=== PATIENT | male | born 1965 | race Two or more races ===

== ENCOUNTER 2024-03-20 20:22 | Inpatient (IN) | payer OTHER ==
[~2024-03-20] VITALS: Ht 172.7 cm; Wt 72.0 kg
[2024-03-21 00:18] LABS: BASOPHILS % (AUTO) 0.3 % (0.0-2.0); EOSINOPHILS % (AUTO) 1.9 % (1.0-6.0); HEMATOCRIT 34.8 % (41-53); HEMOGLOBIN 11.9 g/dL (13.5-17.5); LYMPHOCYTES # (AUTO) 1.1 K/uL (1.0-4.8); LYMPHOCYTES % (AUTO) 17.3 % (22.0-44.0); MEAN CORPUSCULAR HEMOGLOBIN 29.7 pg (26.0-34.0); MEAN CORPUSCULAR HGB CONC 34.1 G/dL (31.0-37.0); MEAN CORPUSCULAR VOLUME 87 fL (80-100); MONOCYTES # (AUTO) 0.8 K/uL (0.1-1.0); MONOCYTES % (AUTO) 11.7 % (2.0-9.0); NEUTROPHILS # (AUTO) 4.4 K/uL (1.8-7.7); NEUTROPHILS % (AUTO) 68.8 % (40.0-70.0); PLATELET COUNT (AUTO) 237 K/uL (150-450); RED BLOOD CELL COUNT(AUTO) 3.99 MIL/uL (4.50-5.90); WHITE BLOOD COUNT (AUTO) 6.5 K/uL (4.5-11.0)
[2024-03-21 00:38] LABS: LACTIC ACID 1.9 mmol/L (0.4-2.0)
[2024-03-21 00:58] LABS: CALCIUM, TOTAL 8.3 mg/dL (8.8-10.5); CARBON DIOXIDE 30 mmol/L (22-29); CREATININE 0.78 mg/dL (0.60-1.30); GLOMERULAR FILTR. RATE CALC > 60 mL/min (>60); GLUCOSE,RANDOM 77 mg/dL (70-110); UREA NITROGEN, BLOOD 19 mg/dL (7-18)
[2024-03-21 01:11] LABS: ANION GAP 0 mmol/L (8-16); CHLORIDE 102 mmol/L (98-107); POTASSIUM 3.6 mmol/L (3.5-5.1); SODIUM SERUM 132 mmol/L (136-145)
[2024-03-21] MEDS: CeFAZolin 1 GM/DEXTROSE 50 ML IV ONE (02:00)
[2024-03-21 02:10] VITALS: BP 133/77; PULSE 72; RESP 18; TEMP 97.7
[2024-03-21] MEDS ORDERED: SODIUM CHLORIDE 0.9% 500 ML IV ONE (03:35)
[2024-03-21] MEDS: VANCOMYCIN 1.25 GM/WATER(PEG) 250 ML IV ONE (03:40)
[2024-03-21 04:35] VITALS: BP 140/84; PULSE 66; RESP 18; TEMP 97.6
[2024-03-21 08:02] VITALS: BP 134/75; PULSE 71; RESP 20; TEMP 98.7
[2024-03-21] MEDS ORDERED: ALBUTEROL SULFATE 2.5 MG/0.5 ML NEB SOLUTION NEB PRN (11:15)
[2024-03-21] MEDS ORDERED: BISACODYL 10 MG RECTAL RECTAL SUPPOSITORY PR PRN (11:15)
[2024-03-21] MEDS ORDERED: CloNIDine HCL 0.1 MG TABLET PO PRN (11:15)
[2024-03-21] MEDS ORDERED: ONDANSETRON HCL 4 MG/2 ML VIAL IVP PRN (11:15)
[2024-03-21] MEDS ORDERED: MAGNESIUM HYDROXIDE SUSPENSION 30 ML UDCUP PO PRN (11:15)
[2024-03-21] MEDS ORDERED: LOPERAMIDE HCL 2 MG/15 ML SUSPENSION UDCUP PO PRN (11:15)
[2024-03-21] MEDS ORDERED: MAG HYDROX/ALUMINUM HYD/SIMETH ES 30 ML SUSPENSION UDCUP PO PRN (11:15)
[2024-03-21] MEDS ORDERED: BACLOFEN 10 MG TABLET PO PRN (11:15)
[2024-03-21] MEDS ORDERED: IPRATROPIUM BROMIDE 0.5 MG/2.5 ML NEB SOLUTION NEB PRN (11:15)
[2024-03-21] MEDS ORDERED: PROMETHAZINE HCL 25 MG TABLET PO PRN (11:15)
[2024-03-21] MEDS ORDERED: TraZODone HCL 50 MG TABLET PO PRN (11:15)
[2024-03-21] MEDS ORDERED: ACETAMINOPHEN 325 MG TABLET PO PRN (11:15)
[2024-03-21] MEDS ORDERED: DICYCLOMINE HCL 10 MG CAPSULE PO PRN (11:15)
[2024-03-21] MEDS ORDERED: IBUPROFEN 600 MG TABLET PO PRN (11:15)
[2024-03-21] MEDS ORDERED: HydrOXYzine PAMOATE 50 MG CAPSULE PO PRN (11:15)
[2024-03-21 16:01] VITALS: BP 124/73; PULSE 73; RESP 20; TEMP 98.2
[2024-03-21] MEDS: HEPARIN SODIUM,PORCINE 5,000 UNITS/ML VIAL SQ SCH (17:17)
[2024-03-21] MEDS: SODIUM CHLORIDE 0.45% 1,000 ML IV SCH (17:17)
[2024-03-21 19:40] VITALS: BP 135/82; PULSE 69; RESP 20; TEMP 98.5
[2024-03-21] MEDS: VANCOMYCIN 1.25 GM/WATER(PEG) 250 ML IV SCH (20:12)
[2024-03-21] MEDS: LORazepam 1 MG TABLET PO PRN (20:19)
[2024-03-21] MEDS: ACETAMINOPHEN 325 MG TABLET PO PRN (20:20)
[2024-03-21] MEDS ORDERED: SODIUM CHLORIDE 0.9% 100 ML ONE (21:05)
[2024-03-21] MEDS ORDERED: IOHEXOL 350 MG/ML 100 ML VIAL ONE (21:05)
[2024-03-22 04:25] VITALS: BP 135/88; PULSE 72; RESP 20; TEMP 98.5
[2024-03-22 07:20] LABS: ANION GAP 6 mmol/L (8-16); BASOPHILS % (AUTO) 0.2 % (0.0-2.0); CALCIUM, TOTAL 8.6 mg/dL (8.8-10.5); CARBON DIOXIDE 27 mmol/L (22-29); CHLORIDE 103 mmol/L (98-107); CREATININE 0.85 mg/dL (0.60-1.30); EOSINOPHILS % (AUTO) 0.4 % (1.0-6.0); GLOMERULAR FILTR. RATE CALC > 60 mL/min (>60); GLUCOSE,RANDOM 97 mg/dL (70-110); HEMATOCRIT 37.9 % (41-53); LYMPHOCYTES # (AUTO) 0.7 K/uL (1.0-4.8); LYMPHOCYTES % (AUTO) 9.6 % (22.0-44.0); MEAN CORPUSCULAR HEMOGLOBIN 29.8 pg (26.0-34.0); MEAN CORPUSCULAR HGB CONC 34.3 G/dL (31.0-37.0); MEAN CORPUSCULAR VOLUME 87 fL (80-100); MONOCYTES # (AUTO) 0.5 K/uL (0.1-1.0); NEUTROPHILS # (AUTO) 6.1 K/uL (1.8-7.7); NEUTROPHILS % (AUTO) 82.8 % (40.0-70.0); PLATELET COUNT (AUTO) 243 K/uL (150-450); POTASSIUM 3.8 mmol/L (3.5-5.1); RED BLOOD CELL COUNT(AUTO) 4.36 MIL/uL (4.50-5.90); RED CELL DISTRIBUTION WIDTH 13.2 % (11.5-14.5); SODIUM SERUM 136 mmol/L (136-145); UREA NITROGEN, BLOOD 17 mg/dL (7-18); WHITE BLOOD COUNT (AUTO) 7.3 K/uL (4.5-11.0)
[2024-03-22] MEDS: PANTOPRAZOLE SODIUM 40 MG DR TABLET PO SCH (07:41)
[2024-03-22 09:27] VITALS: BP 137/86; PULSE 73; RESP 20; TEMP 97.9
[2024-03-22 20:21] VITALS: BP 128/71; PULSE 73; RESP 20; TEMP 98.4
[2024-03-22] MEDS: ZOLPIDEM TARTRATE 5 MG TABLET PO PRN (20:57)
[2024-03-23 04:55] VITALS: BP 135/83; PULSE 68; RESP 20; TEMP 98.7
[2024-03-23 07:07] LABS: ANION GAP 3 mmol/L (8-16); CALCIUM, TOTAL 8.7 mg/dL (8.8-10.5); CARBON DIOXIDE 31 mmol/L (22-29); CHLORIDE 104 mmol/L (98-107); CREATININE 0.83 mg/dL (0.60-1.30); GLOMERULAR FILTR. RATE CALC > 60 mL/min (>60); GLUCOSE,RANDOM 96 mg/dL (70-110); POTASSIUM 4.1 mmol/L (3.5-5.1); SODIUM SERUM 138 mmol/L (136-145); UREA NITROGEN, BLOOD 13 mg/dL (7-18); VANCOMYCIN,RANDOM 11.6 mcg/mL (25.0-50.0)
[2024-03-23 08:20] VITALS: BP 130/79; PULSE 68; RESP 18; TEMP 97.9
[2024-03-23 11:11] VITALS: BP 130/79; PULSE 68; RESP 18; TEMP 97.9; O2SAT 99
[2024-03-23] MEDS: VANCOMYCIN 1GM/WATER(PEG/NADA) 200 ML IV SCH (17:10)
[2024-03-23 20:04] VITALS: BP 129/76; PULSE 69; RESP 18; TEMP 98.5
[2024-03-24 04:49] VITALS: BP 140/88; PULSE 72; RESP 18; TEMP 98.3
[2024-03-24 08:16] VITALS: BP 129/72; PULSE 67; RESP 18; TEMP 97.8
[2024-03-24 12:40] VITALS: BP 129/72; PULSE 67; RESP 18; TEMP 97.8; O2SAT 99
[2024-03-24] MEDS ORDERED: DOXY-354 PO (14:29)
== END 2024-03-24 16:31 | DRG 603 ==
LOC: EMS 20:22 → EDH 03-21 01:44 → 6N 03-21 02:02 → 6S 03-22 13:14
PROVIDERS: ADMIT Hospitalist; ATTEND Hospitalist
PROC: 05H933Z Insertion of Infusion Device into Right Brachial Vein, Percutaneous Approach (ICD-10-PCS; principal; 2024-03-21)
PROC: B54MZZA Ultrasonography of Right Upper Extremity Veins, Guidance (ICD-10-PCS; 2024-03-21)
DX: L03.116 Cellulitis of left lower limb (principal); E87.1 Hypo-osmolality and hyponatremia; F19.10 Other psychoactive substance abuse, uncomplicated; Z87.891 Personal history of nicotine dependence
CPT/HCPCS: 36245; 36569; 71045; 73701; 76937; 80048; 80202; 83605; 85025; 87040; 93005; 99285; J0690; J1644; J7040; J7050; Q9967; 36415-L1; 36415-TC